=== PATIENT | female | born 1995 | race Caucasian/White ===

== ENCOUNTER 2017-10-28 03:24 | Emergency (ER) | payer MEDICAID ==
[2017-10-28] MEDS ORDERED: Pantoprazole 40 MG Vial IVPUSH ONE (04:14)
[2017-10-28] MEDS ORDERED: Ondansetron 4 MG/2 ML SDV IVPUSH ONE (04:14)
[2017-10-28] MEDS ORDERED: Ketorolac 30 MG/ML SDV IVPUSH ONE (04:14)
[2017-10-28 05:10] LABS: CHLORIDE,CL 109 mmol/L (98-110); SODIUM,NA 139 mmol/L (136-146)
--- NOTE | 2017-10-28 06:05 | EDM.PDOC ---
ED HPI GENERAL MEDICAL PROBLEM - General Chief Complaint: Headache Stated Complaint: HEAD HURT Time Seen by Provider: 10/28/17 05:48 - History of Present Illness INITIAL COMMENTS - FREE TEXT/NARRATIVE: HISTORY AND PHYSICAL: History of present illness: Patient's 22-year-old female presents with headache she states she did have a recent episode she was quite intoxicated and did have a fall she does not recall specifically having hit her head at that time she had some mild nausea she denies numbness weakness visual disturbance or other complaints at this time Review of systems: As per history of present illness and below otherwise all systems reviewed and negative. Past medical history: As per history of present illness and as reviewed below otherwise noncontributory. Surgical history: As per history of present illness and as reviewed below otherwise noncontributory. Social history: No reported history of drug or alcohol abuse. Family history: As per history of present illness and as reviewed below otherwise noncontributory. Physical exam: HEENT: Atraumatic, normocephalic, pupils reactive, negative for conjunctival pallor or scleral icterus, mucous membranes moist, throat clear, neck supple, nontender, trachea midline. Lungs: Clear to auscultation, breath sounds equal bilaterally, chest nontender. Heart: S1S2, regular, negative for clicks, rubs, or JVD. Abdomen: Soft, nondistended, nontender. Negative for masses or hepatosplenomegaly. Negative for costovertebral tenderness. Pelvis: Stable nontender. Genitourinary: Deferred. Rectal: Deferred. Extremities: Atraumatic, negative for cords or calf pain. Neurovascular unremarkable. Neuro: Awake, alert, oriented. Cranial nerves II through XII unremarkable. Cerebellum unremarkable. Motor and sensory unremarkable throughout. Exam nonfocal. Diagnostics: CT brain hCG Therapeutics: Deferred by patient Impression: #1 cephalgia Definitive disposition and diagnosis as appropriate pending reevaluation and review of above. occipital area Pain Score (Numeric/FACES): 6 - Related Data Allergies Allergy/AdvReac Type Severity Reaction Status Date / Time No Known Allergies Allergy Verified 10/28/17 03:27 Home Meds: Home Meds . 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 Musculoskeletal History: Reports: None Neurological History: Reports: None Psychiatric History: Reports: None Endocrine/Metabolic History: Reports: None Hematologic History: Reports: None Oncologic (Cancer) History: Reports: None Dermatologic History: Reports: None - Infectious Disease History Infectious Disease History: Reports: Chicken Pox - Past Surgical History HEENT Surgical History: Reports: Oral Surgery, Tonsillectomy Social & Family History - Family History Family Medical History: Noncontributory - Tobacco Use Smoking Status *Q: Never Smoker - Caffeine Use Caffeine Use: Reports: Tea - Recreational Drug Use Recreational Drug Use: No ED ROS GENERAL - Review of Systems Review Of Systems: ROS reveals no pertinent complaints other than HPI. ED EXAM, GENERAL - Physical Exam Exam: See Below (See dictation) Course - Vital Signs Last Recorded V/S: Last Vital Signs Temp 36.6 C 10/28/17 03:24 Pulse 68 10/28/17 03:24 Resp 18 10/28/17 03:24 BP 129/76 10/28/17 03:24 Pulse Ox 96 10/28/17 03:24 - Orders/Labs/Meds Orders: Active Orders 24 hr Category Date Time Status Chest 1V Frontal [CR] Stat Exams 10/28/17 04:14 Ordered Head wo Cont [CT] Stat Exams 10/28/17 05:52 Ordered HCG QUALITATIVE,URINE [URCHEM] Stat Lab 10/28/17 05:50 Received Labs: Laboratory Tests 10/28/17 10/28/17 Range/Units 04:42 04:42 WBC 8.34 (4.0-11.0) K/uL RBC 4.83 (4.30-5.90) M/uL Hgb 13.9 (12.0-16.0) g/dL Hct 41.2 (36.0-46.0) % MCV 85.3 (80.0-98.0) fL MCH 28.8 (27.0-32.0) pg MCHC 33.7 (31.0-37.0) g/dL RDW Std Deviation 41.0 (28.0-62.0) fl RDW Coeff of Laura 14 (11.0-15.0) % Plt Count 208 (150-400) K/uL MPV 10.50 (7.40-12.00) fL Neut % (Auto) 55.6 (48.0-80.0) % Lymph % (Auto) 32.0 (16.0-40.0) % [place] % (Auto) 9.2 (0.0-15.0) % Eos % (Auto) 2.8 (0.0-7.0) % Baso % (Auto) 0.4 (0.0-1.5) % Neut # (Auto) 4.6 (1.4-5.7) K/uL Lymph # (Auto) 2.7 H (0.6-2.4) K/uL [place] # (Auto) 0.8 (0.0-0.8) K/uL Eos # (Auto) 0.2 (0.0-0.7) K/uL Baso # (Auto) 0.0 (0.0-0.1) K/uL Sodium 139 (136-146) mmol/L Potassium 4.4 (3.5-5.1) mmol/L Chloride 109 (98-110) mmol/L Carbon Dioxide 22 (21-31) mmol/L BUN 21 (6.0-23.0) mg/dL Creatinine 0.9 (0.6-1.5) mg/dL Est Cr Clr Drug Dosing 100.73 mL/min Estimated GFR (MDRD) > 60.0 ml/min Glucose 108 (60-110) mg/dL Calcium 9.2 (8.8-10.8) mg/dL Total Bilirubin 0.4 (0.1-1.5) mg/dL AST 19 (5-40) IU/L ALT 20 (8-54) IU/L Alkaline Phosphatase 83 (40-150) Total Protein 6.4 (6.0-8.0) g/dL Albumin 4.3 (3.5-5.0) g/dL Globulin 2.1 (2.0-3.5) g/dL Albumin/Globulin Ratio 2.1 (1.3-2.8) Lipase 20 (7-80) U/L Meds: Medications Discontinued Medications Generic Name Dose Route Start Last Admin Trade Name Freq PRN Reason Stop Dose Admin Ketorolac Tromethamine 30 mg 10/28/17 04:14 Toradol IVPUSH 10/28/17 04:15 ONETIME ONE Ondansetron HCl 4 mg 10/28/17 04:14 Zofran IVPUSH 10/28/17 04:15 ONETIME ONE Pantoprazole Sodium 80 mg 10/28/17 04:14 Protonix Iv IVPUSH 10/28/17 04:15 .BOLUS ONE Departure - Departure Time of Disposition: 06:04 Disposition: Home, Self-Care 01 Condition: Good Clinical Impression: Cephalgia - Discharge Information Referrals: PCP,None [Primary Care Provider] - Additional Instructions: The following information is given to patients seen in the emergency department who are being discharged to home. This information is to outline your options for follow-up care. We provide all patients seen in our emergency department with a follow-up referral. The need for follow-up, as well as the timing and circumstances, are variable depending upon the specifics of your emergency department visit. If you don't have a primary care physician on staff, we will provide you with a referral. We always advise you to contact your personal physician following an emergency department visit to inform them of the circumstance of the visit and for follow-up with them and/or the need for any referrals to a consulting specialist. The emergency department will also refer you to a specialist when appropriate. This referral assures that you have the opportunity for followup care with a specialist. All of these measure are taken in an effort to provide you with optimal care, which includes your followup. Under all circumstances we always encourage you to contact your private physician who remains a resource for coordinating your care. When calling for followup care, please make the office aware that this follow-up is from your recent emergency room visit. If for any reason you are refused follow-up, please contact the [facility] emergency department at and asked to speak to the emergency department charge nurse. [facility] - Neurology Professional Building [address] [place] [address], [address] [place] [address] Motrin/Tylenol as directed push fluids: Schedule routine appointment with neurology as needed as discussed return as needed as discussed - My Orders Last 24 Hours: My Active Orders 10/28/17 04:14 Chest 1V Frontal [CR] Stat 10/28/17 05:50 HCG QUALITATIVE,URINE [URCHEM] Stat 10/28/17 05:52 Head wo Cont [CT] Stat - Assessment/Plan Last 24 Hours: My Active Orders 10/28/17 04:14 Chest 1V Frontal [CR] Stat 10/28/17 05:50 HCG QUALITATIVE,URINE [URCHEM] Stat 10/28/17 05:52 Head wo Cont [CT] Stat
[2017-10-28 07:48] VITALS: BP 106/52
--- NOTE | 2017-10-29 18:16 | CT ---
EXAM DATE: 10/28/17 PATIENT'S AGE: 22 Patient: OLIVER ANTONIO Facility: [place], [place] Site . Site : 1995 Study: CT Head WO CONT [id number] 6:24:38 AM Ordering Physician: Shruti Mijares Final Report: INDICATION: Headache for 3 days, with no known injury. Occipital region. TECHNIQUE: CT Head without i.v. contrast. CONTRAST: None COMPARISON: None FINDINGS: CSF spaces: The ventricles are normal for age. Brain: No evidence of mass, acute infarction or hemorrhage is seen. No mass- effect or midline shift is seen. The brain parenchyma is otherwise normal in appearance with preservation of the lara-white matter junction. Calvarium: The visualized paranasal sinuses are well aerated. The mastoid air cells are clear. The visualized orbits are grossly unremarkable. The calvarium is unremarkable in appearance with no fractures identified. IMPRESSION: 1. No evidence of acute infarction, intracranial hemorrhage, or mass-effect seen. Dictated by: Giovanny Mtz MD @ 10/28/2017 06:33:58 (Electronic Signature) Report Signed by Proxy. EBENEZER
== END 2017-10-28 07:37 | disposition home or self-care (01) ==
LOC: MW.ED 03:24
DX: R51 Headache (principal)
CPT/HCPCS: 36415; 70450; 70450-26; 80053; 81001; 81025; 83690; 85025; 99283; 99284-25

== ENCOUNTER 2019-01-14 16:00 | Emergency (ER) | payer SELFPAY ==
--- NOTE | 2019-01-14 16:06 | EDM.PDOC ---
ED HPI GENERAL MEDICAL PROBLEM - General Chief Complaint: Abdominal Pain Stated Complaint: PAIN ON THE LEFT SIDE Time Seen by Provider: 01/14/19 16:01 Source of Information: Reports: Patient History Limitations: Reports: No Limitations - History of Present Illness INITIAL COMMENTS - FREE TEXT/NARRATIVE: HISTORY AND PHYSICAL: History of present illness: Patient is a 23-year-old female who presents to the emergency room with complaints of left low pelvic pain intermittently for approximately 2-3 months. Describes as cramping sensation. Complains of chronic diarrhea, states she has history of IBS. Mild nausea associated with pelvic pain. Patient denies any fever, chills, headache, change in vision, syncope or near syncope. Denies any chest pain, back pain, shortness of breath or cough. Denies any vomiting, vaginal discharge, constipation or dysuria. Has not noted any blood in urine or stool. Patient has been eating and drinking appropriately. LMP: 2 weeks ago Review of systems: As per history of present illness and below otherwise all systems reviewed and negative. Past medical history: As per history of present illness and as reviewed below otherwise noncontributory. Surgical history: As per history of present illness and as reviewed below otherwise noncontributory. Social history: See social history for further information Family history: As per history of present illness and as reviewed below otherwise noncontributory. Physical exam: General: Well-developed and well-nourished 23-year-old female. Alert and oriented. Nontoxic appearing and in no acute distress. HEENT: Atraumatic, normocephalic, pupils equal and reactive bilaterally, negative for conjunctival pallor or scleral icterus, mucous membranes moist, TMs normal bilaterally, throat clear, neck supple, nontender, trachea midline. No drooling or trismus noted. No meningeal signs. No hot potato voice noted. Lungs: Clear to auscultation, breath sounds equal bilaterally, chest nontender. Heart: S1S2, regular rate and rhythm without overt murmur Abdomen: Soft, nondistended, left low pelvic pain Negative for masses or hepatosplenomegaly. Negative for costovertebral tenderness. Skin: Intact, warm, dry. No lesions or rashes noted. Extremities: Atraumatic, moves all extremities per self without difficulty or deficits, negative for cords or calf pain. Neurovascular unremarkable. Neuro: Awake, alert, oriented. Cranial nerves II through XII unremarkable. Cerebellum unremarkable. Motor and sensory unremarkable throughout. Exam nonfocal. Notes: Patient reports that she recently had a routine well woman exam and had negative STD screening at that time. Declines pelvic exam today. Lab work is unremarkable. Ultrasound is unremarkable. Encouraged her to follow up with her primary care provider. Supportive care measures were reviewed and discussed. Voices understanding and is agreeable to plan of care. Denies any further questions or concerns at this time. Diagnostics: CBC, CMP, UA, urine , non-OB ultrasound Therapeutics: IV fluid, Zofran, Toradol, Bentyl Prescription: Bentyl Diclofenac Impression: Abdominal Pain Chronic Diarrhea History of IBS Plan: 1. If sure you are drinking plenty of fluids to prevent dehydration. 2. Take the medications as prescribed. 3. Follow-up with your primary caregiver as we discussed. Return to the ED as needed and as discussed. Definitive disposition and diagnosis as appropriate pending reevaluation and review of above. Left Lower Pelvic Pain Score (Numeric/FACES): 8 - Related Data Allergies Allergy/AdvReac Type Severity Reaction Status Date / Time No Known Allergies Allergy Verified 01/14/19 16:14 Home Meds: Home Meds . 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 Musculoskeletal History: Reports: None Neurological History: Reports: None Psychiatric History: Reports: None Endocrine/Metabolic History: Reports: None Hematologic History: Reports: None Oncologic (Cancer) History: Reports: None Dermatologic History: Reports: None - Infectious Disease History Infectious Disease History: Reports: Chicken Pox - Past Surgical History HEENT Surgical History: Reports: Oral Surgery, Tonsillectomy Social & Family History - Family History Family Medical History: Noncontributory - Caffeine Use Caffeine Use: Reports: Tea ED ROS GENERAL - Review of Systems Review Of Systems: ROS reveals no pertinent complaints other than HPI. ED EXAM, GI/ABD - Physical Exam Exam: See Below (See dictation) Course - Vital Signs Last Recorded V/S: Last Vital Signs Temp 98.3 F 01/14/19 16:11 Pulse 88 01/14/19 16:11 Resp 18 01/14/19 16:11 BP 127/93 H 01/14/19 16:11 Pulse Ox 98 01/14/19 16:11 - Orders/Labs/Meds Orders: Active Orders 24 hr Category Date Time Status Transvaginal Non OB [US] Stat Exams 01/14/19 16:15 Taken Labs: Laboratory Tests 01/14/19 01/14/19 01/14/19 Range/Units 16:15 16:15 16:34 WBC 9.66 (4.0-11.0) K/uL RBC 5.18 (4.30-5.90) M/uL Hgb 14.3 (12.0-16.0) g/dL Hct 42.6 (36.0-46.0) % MCV 82.2 (80.0-98.0) fL MCH 27.6 (27.0-32.0) pg MCHC 33.6 (31.0-37.0) g/dL RDW Std Deviation 37.9 (28.0-62.0) fl RDW Coeff of Laura 13 (11.0-15.0) % Plt Count 282 (150-400) K/uL MPV 10.60 (7.40-12.00) fL Neut % (Auto) 70.0 (48.0-80.0) % Lymph % (Auto) 23.6 (16.0-40.0) % [place] % (Auto) 5.2 (0.0-15.0) % Eos % (Auto) 0.6 (0.0-7.0) % Baso % (Auto) 0.6 (0.0-1.5) % Neut # (Auto) 6.8 H (1.4-5.7) K/uL Lymph # (Auto) 2.3 (0.6-2.4) K/uL [place] # (Auto) 0.5 (0.0-0.8) K/uL Eos # (Auto) 0.1 (0.0-0.7) K/uL Baso # (Auto) 0.1 (0.0-0.1) K/uL Nucleated RBC % 0.0 /100WBC Nucleated RBCs # 0 K/uL Sodium (136-145) mmol/L Potassium (3.5-5.1) mmol/L Chloride (98-107) mmol/L Carbon Dioxide (21.0-32.0) mmol/L BUN (7.0-18.0) mg/dL Creatinine (0.6-1.0) mg/dL Est Cr Clr Drug Dosing mL/min Estimated GFR (MDRD) ml/min Glucose (74-106) mg/dL Calcium (8.5-10.1) mg/dL Total Bilirubin (0.2-1.0) mg/dL AST (15-37) IU/L ALT (14-63) IU/L Alkaline Phosphatase (46-116) U/L Total Protein (6.4-8.2) g/dL Albumin (3.4-5.0) g/dL Globulin (2.6-4.0) g/dL Albumin/Globulin Ratio (0.9-1.6) Urine Color YELLOW Urine Appearance CLEAR Urine pH 6.0 (5.0-8.0) Ur Specific Comfort <= 1.005 (1.001-1.035) Urine Protein NEGATIVE (NEGATIVE) mg/dL Urine Glucose (UA) NEGATIVE (NEGATIVE) mg/dL Urine Ketones NEGATIVE (NEGATIVE) mg/dL Urine Occult Blood NEGATIVE (NEGATIVE) Urine Nitrite NEGATIVE (NEGATIVE) Urine Bilirubin NEGATIVE (NEGATIVE) Urine Urobilinogen 0.2 (<2.0) EU/dL Ur Leukocyte Esterase NEGATIVE (NEGATIVE) Urine HCG, Qual NEGATIVE (NEGATIVE) 01/14/19 Range/Units 16:34 WBC (4.0-11.0) K/uL RBC (4.30-5.90) M/uL Hgb (12.0-16.0) g/dL Hct (36.0-46.0) % MCV (80.0-98.0) fL MCH (27.0-32.0) pg MCHC (31.0-37.0) g/dL RDW Std Deviation (28.0-62.0) fl RDW Coeff of Laura (11.0-15.0) % Plt Count (150-400) K/uL MPV (7.40-12.00) fL Neut % (Auto) (48.0-80.0) % Lymph % (Auto) (16.0-40.0) % [place] % (Auto) (0.0-15.0) % Eos % (Auto) (0.0-7.0) % Baso % (Auto) (0.0-1.5) % Neut # (Auto) (1.4-5.7) K/uL Lymph # (Auto) (0.6-2.4) K/uL [place] # (Auto) (0.0-0.8) K/uL Eos # (Auto) (0.0-0.7) K/uL Baso # (Auto) (0.0-0.1) K/uL Nucleated RBC % /100WBC Nucleated RBCs # K/uL Sodium 137 (136-145) mmol/L Potassium 4.0 (3.5-5.1) mmol/L Chloride 101 (98-107) mmol/L Carbon Dioxide 26.0 (21.0-32.0) mmol/L BUN 7 (7.0-18.0) mg/dL Creatinine 0.8 (0.6-1.0) mg/dL Est Cr Clr Drug Dosing 112.34 mL/min Estimated GFR (MDRD) > 60.0 ml/min Glucose 118 H (74-106) mg/dL Calcium 9.7 (8.5-10.1) mg/dL Total Bilirubin 0.7 (0.2-1.0) mg/dL AST 11 L (15-37) IU/L ALT 19 (14-63) IU/L Alkaline Phosphatase 68 (46-116) U/L Total Protein 7.7 (6.4-8.2) g/dL Albumin 4.5 (3.4-5.0) g/dL Globulin 3.2 (2.6-4.0) g/dL Albumin/Globulin Ratio 1.4 (0.9-1.6) Urine Color Urine Appearance Urine pH (5.0-8.0) Ur Specific Comfort (1.001-1.035) Urine Protein (NEGATIVE) mg/dL Urine Glucose (UA) (NEGATIVE) mg/dL Urine Ketones (NEGATIVE) mg/dL Urine Occult Blood (NEGATIVE) Urine Nitrite (NEGATIVE) Urine Bilirubin (NEGATIVE) Urine Urobilinogen (<2.0) EU/dL Ur Leukocyte Esterase (NEGATIVE) Urine HCG, Qual (NEGATIVE) Meds: Medications Discontinued Medications Generic Name Dose Route Start Last Admin Trade Name Freq PRN Reason Stop Dose Admin Dicyclomine HCl 10 mg 01/14/19 16:49 01/14/19 17:25 Bentyl PO 01/14/19 16:50 10 mg ONETIME ONE Administration Sodium Chloride 1,000 mls @ 999 mls/hr 01/14/19 16:13 01/14/19 16:32 Normal Saline IV 01/14/19 17:13 999 mls/hr STAT ONE Administration Ketorolac Tromethamine 30 mg 01/14/19 16:13 01/14/19 16:32 Toradol IVPUSH 01/14/19 16:14 30 mg ONETIME ONE Administration Ondansetron HCl 4 mg 01/14/19 16:13 01/14/19 16:32 Zofran IVPUSH 01/14/19 16:14 4 mg ONETIME ONE Administration Departure - Departure Time of Disposition: 18:15 Disposition: Home, Self-Care 01 Clinical Impression: Abdominal pain Qualifiers: Abdominal location: left lower quadrant Qualified Code(s): R10.32 - Left lower quadrant pain - Discharge Information Instructions: Abdominal Pain, Adult, [id number] Referrals: PCP,Unknown [Primary Care Provider] - Forms: ED Department Discharge Additional Instructions: The following information is given to patients seen in the emergency department who are being discharged to home. This information is to outline your options for follow-up care. We provide all patients seen in our emergency department with a follow-up referral. The need for follow-up, as well as the timing and circumstances, are variable depending upon the specifics of your emergency department visit. If you don't have a primary care physician on staff, we will provide you with a referral. We always advise you to contact your personal physician following an emergency department visit to inform them of the circumstance of the visit and for follow-up with them and/or the need for any referrals to a consulting specialist. The emergency department will also refer you to a specialist when appropriate. This referral assures that you have the opportunity for follow-up care with a specialist. All of these measure are taken in an effort to provide you with optimal care, which includes your follow-up. Under all circumstances we always encourage you to contact your private physician who remains a resource for coordinating your care. When calling for follow-up care, please make the office aware that this follow-up is from your recent emergency room visit. If for any reason you are refused follow-up, please contact the [facility] Emergency Department at and asked to speak to the emergency department charge nurse. [facility] [address] [place] [address] [facility] [address] [place] [id number] 1. Make sure you are drinking plenty of fluids to prevent dehydration. 2. Take the medications as prescribed. 3. Follow-up with your primary caregiver as we discussed. Return to the ED as needed and as discussed. - My Orders Last 24 Hours: My Active Orders 01/14/19 16:15 Transvaginal Non OB [US] Stat - Assessment/Plan Last 24 Hours: My Active Orders 01/14/19 16:15 Transvaginal Non OB [US] Stat
[2019-01-14] MEDS ORDERED: Sodium Chloride 0.9% 1,000 ML IV ONE (16:13)
[2019-01-14] MEDS ORDERED: Ketorolac 30 MG/ML SDV IVPUSH ONE (16:13)
[2019-01-14] MEDS ORDERED: Ondansetron 4 MG/2 ML SDV IVPUSH ONE (16:13)
[2019-01-14] MEDS ORDERED: Dicyclomine 10 MG Cap PO ONE (16:49)
[2019-01-14 17:01] LABS: CHLORIDE,CL 101 mmol/L (98-107); SODIUM,NA 137 mmol/L (136-145)
--- NOTE | 2019-01-14 18:13 | US ---
INDICATION: Left-sided pelvic pain for 6 months TECHNIQUE: Ultrasound pelvis transabdominal and transvaginal for better assessment or to better visualize. Real time sonographic images with Spectral and color Doppler imaging of the ovaries were obtained. COMPARISON: FINDINGS: Uterus: 7.8 x 4.6 x 3.0 cm. Normal echotexture of the myometrium. No masses. Endometrium: Transvaginal imaging was performed to better evaluate the endometrium. 5.6 mm in thickness. No sign of endometrial mass or fluid. Right ovary: 1.2 x 1.8 x 1.2 cm. No ovarian or adnexal masses. Normal arterial and venous blood flow. Left ovary: 3.2 x 2.6 x 3.5 cm. No ovarian or adnexal masses. Normal arterial and venous blood flow. Cul-de-sac: No significant free fluid. IMPRESSION: Unremarkable pelvic ultrasound. Dictated by Gaurav Durham MD @ Jan 14 2019 6:08PM Signed by Dr. Gaurav Durham @ Jan 14 2019 6:11PM
[2019-01-14 18:33] VITALS: BP 93/54
== END 2019-01-14 18:32 | disposition home or self-care (01) ==
LOC: MW.ED 16:00
DX: K52.9 Noninfective gastroenteritis and colitis, unspecified (principal)
CPT/HCPCS: 36415; 76830; 80053; 81003; 81025; 85025; 96361; 96374; 96375; 99284; A9270; J1885; J2405; J7040

== ENCOUNTER 2021-03-07 08:00 | Inpatient (IN) | payer BC ==
[2021-03-14] MEDS ORDERED: Sodium Chloride 0.9% 10 ML Syringe FLUSH PRN (07:43)
[2021-03-14] MEDS ORDERED: Sodium Chloride 0.9% 10 ML SDV IV PRN (07:43)
[2021-03-14] MEDS ORDERED: Citric Acid/Sodium Citrate Solution 30 ML Cup PO ONE (07:43)
[2021-03-14] MEDS ORDERED: Sodium Chloride 0.9% 2.5 ML Syringe FLUSH PRN (07:43)
[2021-03-14] MEDS ORDERED: Lactated Ringers 1,000 ML IV SCH ×2 (07:45→10:30)
[2021-03-14] MEDS ORDERED: Oxytocin/0.9 % Sodium Chloride 30 UNIT/500 ML BAG IV SCH (07:45)
[2021-03-14] MEDS ORDERED: Ketorolac 30 MG/ML SDV ONE (08:07)
[2021-03-14] MEDS ORDERED: Oxytocin 10 Units/1 ML SDV ONE (08:07)
[2021-03-14] MEDS ORDERED: Sodium Chloride 0.9% 20 ML ONE (08:07)
[2021-03-14] MEDS ORDERED: ceFAZolin 1 GM Vial ONE (08:07)
[2021-03-14] MEDS ORDERED: Ondansetron 4 MG/2 ML SDV ONE (08:07)
[2021-03-14] MEDS ORDERED: Morphine PF 10 MG/10 ML SDV ONE (08:08)
[2021-03-14] MEDS ORDERED: fentaNYL 100 MCG/2 ML SDV ONE (08:08)
--- NOTE | 2021-03-14 08:25 | PCM.PREANE ---
Preanesthetic Assessment - Anesthesia/Transfusion/Family Hx Anesthesia History: Prior Anesthesia Without Reaction Family History of Anesthesia Reaction: No Transfusion History: No Prior Transfusion(s) - Review of Systems General: No Symptoms Pulmonary: No Symptoms Cardiovascular: No Symptoms Gastrointestinal: No Symptoms Neurological: No Symptoms Other: Reports: None - Physical Assessment NPO Status Date: 03/14/21 NPO Status Time: 00:00 Height: 5 ft 9 in Weight: 235 lb ASA Class: 2 Mental Status: Alert & Oriented x3 Airway Class: Mallampati = 3 Dentition: Reports: Normal Dentition ROM/Head Extension: Full Lungs: Clear to Auscultation, Normal Respiratory Effort Cardiovascular: Regular Rate, Regular Rhythm - Allergies Allergies/Adverse Reactions: Allergies Allergy/AdvReac Type Severity Reaction Status Date / Time No Known Allergies Allergy Verified 03/08/21 09:07 - Blood Blood Available: Yes Product(s) Available: PRBC - Anesthesia Plan Pre-Op Medication Ordered: None - Acknowledgements Anesthesia Type Planned: Spinal Pt an Appropriate Candidate for the Planned Anesthesia: Yes Alternatives and Risks of Anesthesia Discussed w Pt/Guardian: Yes Pt/Guardian Understands and Agrees with Anesthesia Plan: Yes PreAnesthesia Questionnaire - Past Health History Medical/Surgical History: Denies Medical/Surgical History HEENT History: Reports: None Other HEENT History: wears glasses Cardiovascular History: Reports: None Respiratory History: Reports: None Gastrointestinal History: Reports: None Genitourinary History: Reports: None LANDSCAPE ARCHITECT History: Reports: None Musculoskeletal History: Reports: None Neurological History: Reports: None Psychiatric History: Reports: None Endocrine/Metabolic History: Reports: None Hematologic History: Reports: None Immunologic History: Reports: None Oncologic (Cancer) History: Reports: None Dermatologic History: Reports: None - Infectious Disease History Infectious Disease History: Reports: Chicken Pox - Past Surgical History Head Surgeries/Procedures: Reports: None HEENT Surgical History: Reports: Oral Surgery, Tonsillectomy Cardiovascular Surgical History: Reports: None Respiratory Surgical History: Reports: None GI Surgical History: Reports: None Female Surgical History: Reports: None Endocrine Surgical History: Reports: None Neurological Surgical History: Reports: None Musculoskeletal Surgical History: Reports: None Oncologic Surgical History: Reports: None Dermatological Surgical History: Reports: None - SUBSTANCE USE Tobacco Use Status *Q: Never Tobacco User - HOME MEDS Home Medications: Home Meds Vit with Ca/FA/Iron [ Plus Iron] 1 tab-cap PO DAILY 03/07/21 [History] Calcium Carbonate [Tums] 1 tab.chew CHEW ASDIRECTED PRN 03/08/21 [History] - CURRENT (IN HOUSE) MEDS Current Meds: Current Medications Oxytocin/Sodium Chloride (Oxytocin 30 Unit/500 Ml-Ns) 30 unit in 500 mls @ 250 mls/hr IV TITRATE JAMI Lactated Ringer's (Ringers, Lactated) 1,000 mls @ 500 mls/hr IV BOLUS JAMI Sodium Chloride (Sodium Chloride 0.9% 10 Ml Syringe) 10 ml FLUSH ASDIRECTED PRN PRN Reason: Keep Vein Open Sodium Chloride (Sodium Chloride 0.9% 2.5 Ml Syringe) 2.5 ml FLUSH ASDIRECTED PRN PRN Reason: Keep Vein Open Sodium Chloride (Sodium Chloride 0.9% 10 Ml Sdv) 10 ml IV ASDIRECTED PRN PRN Reason: IV Use Discontinued Medications Cefazolin Sodium (Cefazolin 1 Gm Vial) Confirm Administered Dose 2 gm .ROUTE .STK-MED ONE Stop: 03/14/21 08:08 Citric Acid/Sodium Citrate (Citric Acid/Sodium Citrate Solution 30 Ml Cup) 30 ml PO ONETIME ONE Stop: 03/14/21 07:44 Fentanyl (Fentanyl 100 Mcg/2 Ml Sdv) Confirm Administered Dose 100 mcg .ROUTE .STK-MED ONE Stop: 03/14/21 08:09 Sodium Chloride (Normal Saline) Confirm Administered Dose 20 mls @ as directed .ROUTE .STK-MED ONE Stop: 03/14/21 08:08 Ketorolac Tromethamine (Ketorolac 30 Mg/Ml Sdv) Confirm Administered Dose 30 mg .ROUTE .STK-MED ONE Stop: 03/14/21 08:08 Morphine Sulfate (Morphine Pf 10 Mg/10 Ml Sdv) Confirm Administered Dose 10 mg .ROUTE .STK-MED ONE Stop: 03/14/21 08:09 Ondansetron HCl (Ondansetron 4 Mg/2 Ml Sdv) Confirm Administered Dose 4 mg .ROUTE .STK-MED ONE Stop: 03/14/21 08:08 Oxytocin (Oxytocin 10 Units/1 Ml Sdv) Confirm Administered Dose 30 unit .ROUTE .STK-MED ONE Stop: 03/14/21 08:08
[2021-03-14] MEDS ORDERED: Bupivacaine 0.5% 30 ML SDV ONE (09:31)
[2021-03-14] MEDS ORDERED: Bupivacaine 0.5% 10 ML SDV ONE (09:31)
[2021-03-14] MEDS ORDERED: EPINEPHrine 1 MG/ML SDV ONE (09:31)
[2021-03-14] MEDS ORDERED: Ondansetron 4 MG/2 ML SDV IVPUSH PRN (10:21)
[2021-03-14] MEDS ORDERED: Lanolin 100% Cream 7 GM Tube TOP PRN (10:21)
[2021-03-14] MEDS ORDERED: Bisacodyl 10 MG Supp RECTAL PRN (10:21)
[2021-03-14] MEDS ORDERED: diphenhydrAMINE 50 MG/ML SDV IVPUSH PRN (10:21)
--- NOTE | 2021-03-14 10:28 | PCM.OPNOTE ---
- General Post-Op/Procedure Note Date of Surgery/Procedure: 03/14/21 Operative Procedure(s): Primary low-transverse section Findings: Live female , Apgars 8/8, weight 2430g, meredith breech presentation, Crissy [place] Placenta intact and with 3-vessel cord Normal-appearing uterus, fallopian tubes, ovaries Pre Op Diagnosis: 26yo @ 38w0d. Meredith breech presentation. growth restriction Post-Op Diagnosis: Same Anesthesia Technique: Local (TAP block by Anesthesia), Spinal Primary Surgeon: Shani Cisneros Anesthesia Provider: Lopez Marley Pathology: Placenta, cord blood, cord gases Fluid Replacement, Intraop: 1,500 Output, Urine Amount: 125 EBL in mLs: 600 Complications: None Condition: Good Free Text/Narrative:: 2g Ancef IV given prior to procedure
[2021-03-14] MEDS ORDERED: Oxytocin/Lactated Ringers 30 UNIT/500 ML BAG IV SCH (10:30)
--- NOTE | 2021-03-14 10:44 | PCM48HPAN ---
Post Anesthesia Note - EVALUATION WITHIN 48HRS OF ANESTHETIC Vital Signs in Normal Range: Yes Patient Participated in Evaluation: Yes Respiratory Function Stable: Yes Airway Patent: Yes Cardiovascular Function Stable: Yes Hydration Status Stable: Yes Pain Control Satisfactory: Yes Nausea and Vomiting Control Satisfactory: Yes Mental Status Recovered: Yes
--- NOTE | 2021-03-14 10:44 | PCM.POSTAN ---
POST ANESTHESIA ASSESSMENT - MENTAL STATUS Mental Status: Alert, Oriented - RESPIRATORY Respiratory Status: Respiratory Rate WNL, Airway Patent, O2 Saturation Stable - CARDIOVASCULAR CV Status: Pulse Rate WNL, Blood Pressure Stable - GASTROINTESTINAL GI Status: No Symptoms - POST OP HYDRATION Hydration Status: Adequate & Stable
--- NOTE | 2021-03-14 10:50 | PCM.SN.2 ---
- Free Text/Narrative Note: Under sterile conditions, having obtained informed consent and following a primary C/S an US guided Bilateral TAPS block was performed for post op analgesia. Patient was fully monitored and received 20cc 0.5% Bupiv with epi on each side. No complications Patient tolerated the procedure well and was taken to PACU for recovery. Lopez Marley MD Anesthesia start: 1007 Anesthesia Stop: 1015 03/14/2021
--- NOTE | 2021-03-14 11:49 | OR ---
SURGEON: Shani Cisneros MD DATE OF PROCEDURE: 03/14/2021 PREOPERATIVE DIAGNOSES: 1. 26-year-old G1, P0, at 38 weeks' and 0 day gestation. 2. Meredith breech presentation. 3. growth restriction. POSTOPERATIVE DIAGNOSES: 1. 26-year-old G1, P0, at 38 weeks' and 0 day gestation. 2. Meredith breech presentation. 3. growth restriction. PROCEDURE: Primary low transverse section via Pfannenstiel. PRIMARY SURGEON: Shani Cisneros MD ANESTHESIA: Spinal and transversus abdominis plane block by Anesthesia. IV FLUIDS: 1500 mL LR. ESTIMATED BLOOD LOSS: 600 mL. URINE OUTPUT: 125 mL clear yellow urine at the end of procedure. ANTIBIOTIC PROPHYLAXIS: 2 g Ancef IV. FINDINGS: Live female infant in meredith breech presentation. score 8 and 8 at one and five minutes respectively. Weight 2430 g. Placenta intact and with 3-vessel cord. Normal-appearing uterus, fallopian tubes, and ovaries. PATHOLOGY: Placenta and cord blood. INDICATIONS: This is a 26-year-old G1, P0, who presented at 38 weeks' and 0 day gestation for scheduled primary delivery. The patient's infant had persistent breech presentation. The patient declined external cephalic version. growth restriction was suspected based on ultrasound with an estimated weight to be 8th percentile. After discussion with Maternal Medicine, the plan was made to deliver the patient at 38 weeks' and 0 day gestation. The risks, benefits, and alternatives of procedure were reviewed with the patient prior to surgery. DESCRIPTION OF PROCEDURE: The patient was taken to the operating room, where spinal anesthesia was obtained without difficulty. She was placed in the dorsal supine position with leftward tilt. She was prepared and draped in the normal sterile fashion. A Pfannenstiel skin incision was made with a scalpel and carried through to the underlying layer of fascia with the Bovie. Fascia was incised in the midline and the incision extended laterally with curved Ellis scissors. The superior aspect of the fascial incision was grasped with Lyndsey clamps, elevated, and underlying rectus muscles dissected off bluntly. In a similar fashion, the inferior aspect of the fascial incision was grasped with Lyndsey clamps, elevated, and the underlying rectus muscles dissected off bluntly. Peritoneum was identified in the midline and entered bluntly with a digit. Peritoneal incision was extended using manual traction. A large Eduardo retractor was placed. A low uterine hysterotomy was created. Artificial rupture of membranes occurred with clear fluid noted. The hysterotomy was extended using manual traction. The 's buttocks were noted at the hysterotomy and was brought through. The buttocks were grasped with a moist blue towel and the infant was delivered to the level of the scapula. At this time, the legs easily delivered. The 's left arm was swept across the chest and delivered through hysterotomy. was rotated 180 degrees and the right arm was swept across the chest and delivered. The infant's head was flexed. Using the Tpoivqfp-[id number]-[id number] manuever, the 's head was delivered through the hysterotomy. After approximately 15 seconds, the cord was clamped and cut and the infant was handed off to the awaiting Rooming House Keeper and nurse. Cord blood and cord gases were obtained. Placenta then delivered intact and with 3-vessel cord with uterine massage and gentle traction on the cord. The uterus was cleared of all clots and debris. Hysterotomy was repaired with a running locked stitch of 0 Vicryl suture. A second stitch of the same suture was used to obtain hemostasis. The Bovie was used to obtain hemostasis of bleeding serosa. The hysterotomy was inspected and noted to be hemostatic. The Eduardo retractor was removed. The peritoneum and muscle were closed with a running stitch of 3-0 Vicryl suture. The muscles were inspected and the Bovie used to obtain hemostasis. The fascia was closed with running stitch of 0 Vicryl suture. The subcutaneous tissue was irrigated with sterile saline. The subcutaneous tissue was closed with a running stitch of 3-0 Vicryl suture. The skin was closed with 4-0 Monocryl in subcuticular fashion. The incision was covered with Steri-Strips and a pressure dressing. After completion of the procedure, the transversus abdominis plane block was performed by Anesthesia. All sponge, lap, and needle counts were correct x2. [id number] / RYNE /[id number] EBENEZER
[2021-03-14] MEDS: Ketorolac 30 MG/ML SDV IVPUSH SCH ×3 (16:43→22:30)
[2021-03-14] MEDS: Docusate Sodium 100 MG Cap PO SCH (21:36)
[2021-03-15] MEDS: Ketorolac 30 MG/ML SDV IVPUSH SCH ×2 (04:46→12:15)
--- NOTE | 2021-03-15 06:14 | PCM.PNPP ---
- General Info Date of Service: 03/15/21 Subjective Update: Patient without complaints this morning, states she is doing really well. Has ambulated in room. Minimal pain. Functional Status: Reports: Pain Controlled, Tolerating Diet, Ambulating - Review of Systems General: Reports: No Symptoms HEENT: Reports: No Symptoms Pulmonary: Reports: No Symptoms Cardiovascular: Reports: No Symptoms Gastrointestinal: Reports: No Symptoms Genitourinary: Reports: No Symptoms Musculoskeletal: Reports: No Symptoms Skin: Reports: No Symptoms Neurological: Reports: No Symptoms Psychiatric: Reports: No Symptoms - Patient Data Vital Signs - Most Recent: Last Vital Signs Temp 36.6 C 03/15/21 04:30 Pulse 78 03/15/21 06:00 Resp 16 03/15/21 06:00 BP 95/71 03/15/21 04:30 Pulse Ox 98 03/15/21 06:00 Weight - Most Recent: 106.594 kg I&O - Last 24 Hours: Intake & Output 03/14/21 03/14/21 03/15/21 14:59 22:59 06:59 Intake Total 1500 Output Total 450 450 705 Balance 1050 -450 -705 Lab Results - Last 24 Hours: Laboratory Results - last 24 hr 03/14/21 03/14/21 03/14/21 Range/Units 08:05 08:05 09:37 WBC 13.63 H (4.0-11.0) K/uL RBC 4.81 (4.30-5.90) M/uL Hgb 13.3 (12.0-16.0) g/dL Hct 39.3 (36.0-46.0) % MCV 81.7 (80.0-98.0) fL MCH 27.7 (27.0-32.0) pg MCHC 33.8 (31.0-37.0) g/dL RDW Std Deviation 40.1 (28.0-62.0) fl RDW Coeff of Laura 13 (11.0-15.0) % Plt Count 273 (150-400) K/uL MPV 11.40 (7.40-12.00) fL Nucleated RBC % 0.0 /100WBC Nucleated RBCs # 0 K/uL Cord ABG pH TNP Cord ABG Base Excess TNP Cord VBG pH 7.302 (7.25-7.45) Cord VBG Base Excess -3 (-10--2) Blood Type O POSITIVE Antibody Screen NEGATIVE Med Orders - Current: Current Medications Bisacodyl (Bisacodyl 10 Mg Supp) 10 mg RECTAL ONETIME PRN PRN Reason: Constipation Diphenhydramine HCl (Diphenhydramine 50 Mg/Ml Sdv) 25 mg IVPUSH Q6H PRN PRN Reason: Itching or Nausea Docusate Sodium (Docusate Sodium 100 Mg Cap) 100 mg PO BID [facility] Last Admin: 03/14/21 21:36 Dose: 100 mg Documented by: Emollient Ointment (Lanolin 100% Cream 7 Gm Tube) 0 gm TOP ASDIRECTED PRN PRN Reason: Sore Nipples Oxytocin/Sodium Chloride (Oxytocin 30 Unit/500 Ml-Ns) 30 unit in 500 mls @ 250 mls/hr IV TITRATE [facility] Lactated Ringer's (Ringers, Lactated) 1,000 mls @ 500 mls/hr IV BOLUS JAMI Lactated Ringer's (Ringers, Lactated) 1,000 mls @ 125 mls/hr IV ASDIRECTED [facility] Last Admin: 03/14/21 12:22 Dose: 125 mls/hr Documented by: Oxytocin/Lactated Ringer's (Pitocin In Lr 30 Units/500 Ml) 30 unit in 500 mls @ 999 mls/hr IV TITRATE [facility]; Protocol Ibuprofen (Ibuprofen 800 Mg Tab) 800 mg PO Q8H PRN PRN Reason: mild pain or fever Ketorolac Tromethamine (Ketorolac 30 Mg/Ml Sdv) 30 mg IVPUSH Q6H [facility] Stop: 03/15/21 10:31 Last Admin: 03/15/21 04:46 Dose: 30 mg Documented by: Ondansetron HCl (Ondansetron 4 Mg/2 Ml Sdv) 4 mg IVPUSH Q4H PRN PRN Reason: Nausea/Vomiting Oxycodone/Acetaminophen (Acetaminophen/Oxycodone 325-5 Mg Tab) 1 tab PO Q4H PRN PRN Reason: Pain (severe 7-10) Oxycodone/Acetaminophen (Acetaminophen/Oxycodone 325-5 Mg Tab) 2 tab PO Q4H PRN PRN Reason: Pain (severe 7-10) Sodium Chloride (Sodium Chloride 0.9% 10 Ml Syringe) 10 ml FLUSH ASDIRECTED PRN PRN Reason: Keep Vein Open Sodium Chloride (Sodium Chloride 0.9% 2.5 Ml Syringe) 2.5 ml FLUSH ASDIRECTED PRN PRN Reason: Keep Vein Open Sodium Chloride (Sodium Chloride 0.9% 10 Ml Sdv) 10 ml IV ASDIRECTED PRN PRN Reason: IV Use Discontinued Medications Bupivacaine HCl (Bupivacaine 0.5% 10 Ml Sdv) Confirm Administered Dose 10 ml .ROUTE .STK-MED ONE Stop: 03/14/21 09:32 Bupivacaine HCl (Bupivacaine 0.5% 30 Ml Sdv) Confirm Administered Dose 30 ml .ROUTE .STK-MED ONE Stop: 03/14/21 09:32 Cefazolin Sodium (Cefazolin 1 Gm Vial) Confirm Administered Dose 2 gm .ROUTE .STK-MED ONE Stop: 03/14/21 08:08 Citric Acid/Sodium Citrate (Citric Acid/Sodium Citrate Solution 30 Ml Cup) 30 ml PO ONETIME ONE Stop: 03/14/21 07:44 Epinephrine HCl (Epinephrine 1 Mg/Ml Sdv) Confirm Administered Dose 1 mg .ROUTE .STK-MED ONE Stop: 03/14/21 09:32 Fentanyl (Fentanyl 100 Mcg/2 Ml Sdv) Confirm Administered Dose 100 mcg .ROUTE .STK-MED ONE Stop: 03/14/21 08:09 Sodium Chloride (Normal Saline) Confirm Administered Dose 20 mls @ as directed .ROUTE .STK-MED ONE Stop: 03/14/21 08:08 Ketorolac Tromethamine (Ketorolac 30 Mg/Ml Sdv) Confirm Administered Dose 30 mg .ROUTE .STK-MED ONE Stop: 03/14/21 08:08 Morphine Sulfate (Morphine Pf 10 Mg/10 Ml Sdv) Confirm Administered Dose 10 mg .ROUTE .STK-MED ONE Stop: 03/14/21 08:09 Ondansetron HCl (Ondansetron 4 Mg/2 Ml Sdv) Confirm Administered Dose 4 mg .ROUTE .STK-MED ONE Stop: 03/14/21 08:08 Oxytocin (Oxytocin 10 Units/1 Ml Sdv) Confirm Administered Dose 30 unit .ROUTE .STK-MED ONE Stop: 03/14/21 08:08 - Infant Interaction Infant Disposition, : in Room with Family Interaction: Holding Feeding: Bottle Fed Infant Support Person: Significant Other - Recovery Exam Fundal Tone: Firm Fundal Level: 1 Fingerbreadths Below Umbilicus Fundal Placement: Midline Lochia Amount: Scant, Small Lochia Color: Rubra/Red Urinary Elimination: Not Voiding (catheter removed 1 hour ago, has not yet attempted voiding) - Exam General: Alert, Oriented Neck: Supple Lungs: Normal Respiratory Effort GI/Abdominal Exam: Soft, Non-Tender, No Distention Extremities: Non-Tender, No Pedal Edema Skin: Warm, Dry, Intact Wound/Incisions: Dressing Dry and Intact Neurological: No New Focal Deficit Psy/Mental Status: Alert, Normal Affect, Normal Mood - Problem List & Annotations (1) S/P primary low transverse SNOMED Code(s): 651540374, [id number], 951748251, 812902062, [id number] Code(s): Z98.891 - HISTORY OF UTERINE SCAR FROM PREVIOUS SURGERY Status: Acute Current Visit: Yes - Problem List Review Problem List Initiated/Reviewed/Updated: Yes - My Orders Last 24 Hours: My Active Orders 03/14/21 07:43 Patient Status [ADT] Routine Procedure Site Prep Instruct [RC] ASDIRECTED Up ad Rosie [RC] ASDIRECTED Verify Patient Consent Obtain [RC] ASDIRECTED Vital Signs [RC] PER UNIT ROUTINE Sodium Chloride 0.9% [Normal Saline] 10 ml IV ASDIRECTED PRN Sodium Chloride 0.9% [Saline Flush] 10 ml FLUSH ASDIRECTED PRN Sodium Chloride 0.9% [Saline Flush] 2.5 ml FLUSH ASDIRECTED PRN Peripheral IV Insertion Adult [OM.PC] Routine Schedule Procedure [COMM] Per Unit Routine Resuscitation Status Routine 03/14/21 07:45 Lactated Ringers [Ringers, Lactated] 1,000 ml IV BOLUS Oxytocin/0.9 % Sodium Chloride [Oxytocin 30 Unit/500 ML-NS] 30 unit in 500 ml IV TITRATE 03/14/21 07:47 Notify Provider Vital Signs [RC] PRN 03/14/21 08:05 RPR (SYPHILIS SERO) W/ RFLX [REF] Routine 03/14/21 10:21 Patient Status [ADT] Routine Ambulate [RC] PER UNIT ROUTINE Communication Order [RC] PER UNIT ROUTINE Communication Order [RC] PER UNIT ROUTINE Communication Order [RC] Per Unit Routine Intake and Output [RC] Q8H May Shower [RC] ASDIRECTED Notify Provider Intake and Out [RC] ASDIRECTED Notify Provider Vital Signs [RC] ASDIRECTED RT Incentive Spirometry [RC] Q2HWA Urinary Catheter Removal [RC] PER UNIT ROUTINE Vital Signs [RC] Q1H Acetaminophen/oxyCODONE [Percocet 325-5 MG] 1 tab PO Q4H PRN Acetaminophen/oxyCODONE [Percocet 325-5 MG] 2 tab PO Q4H PRN Lanolin [Lansinoh HPA] See Dose Instructions TOP ASDIRECTED PRN Ondansetron [Zofran] 4 mg IVPUSH Q4H PRN bisacodyL [Dulcolax] 10 mg RECTAL ONETIME PRN diphenhydrAMINE [Benadryl] 25 mg IVPUSH Q6H PRN Abdominal Binder [OM.PC] Routine Assess Lochia [WOMSER] Per Unit Routine Assess Uterine Involution [WOMSER] Per Unit Routine Breast Pump [WOMSER] Per Unit Routine DVT/VTE Prophylaxis Reflex [OM.PC] Routine Heat Therapy [OM.PC] Routine Ice Therapy [OM.PC] Routine Peripheral IV Discontinue [OM.PC] Routine Sequential Compression Device [OM.PC] Per Unit Routine 03/14/21 10:22 Antiembolic Devices [RC] .Routine Antiembolic Devices [RC] PER UNIT ROUTINE Cooling Warming Measures [RC] ASDIRECTED VTE/DVT Education [RC] PER UNIT ROUTINE 03/14/21 10:30 Ketorolac [Toradol] 30 mg IVPUSH Q6H Lactated Ringers [Ringers, Lactated] 1,000 ml IV ASDIRECTED Oxytocin/Lactated Ringers [Pitocin in LR 30 Units/500 ML] 30 unit in 500 ml IV TITRATE 03/14/21 Lunch Regular Diet [DIET] 03/14/21 21:00 Docusate Sodium [Colace] 100 mg PO BID 03/15/21 05:15 HEMOGLOBIN/HEMATOCRIT,HH [HEME] Routine 03/15/21 16:30 Ibuprofen [Motrin] 800 mg PO Q8H PRN - Assessment Assessment:: 26yo s/p 1LTCS at 38w0d for growth restriction and meredith breech presentation, POD#1 - Plan Plan:: Continue routine care. Rh positive. Encourage ambulation today. Plan discharge home tomorrow.
[2021-03-15] MEDS: Docusate Sodium 100 MG Cap PO SCH ×2 (12:15→20:26)
[2021-03-15] MEDS: Acetaminophen/oxyCODONE 325-5 MG Tab PO PRN ×2 (18:57→22:52)
[2021-03-15] MEDS: Ibuprofen 800 MG Tab PO PRN (20:26)
[2021-03-16] MEDS: Ibuprofen 800 MG Tab PO PRN (06:28)
[2021-03-16] MEDS: Acetaminophen/oxyCODONE 325-5 MG Tab PO PRN ×2 (06:29→11:11)
--- NOTE | 2021-03-16 08:33 | PCM.PNPP ---
- General Info Date of Service: 03/16/21 Subjective Update: Patient without complaints this morning. Bleeding has decreased. Functional Status: Reports: Pain Controlled, Tolerating Diet, Ambulating, Urinating - Review of Systems General: Reports: No Symptoms HEENT: Reports: No Symptoms Pulmonary: Reports: No Symptoms Cardiovascular: Reports: No Symptoms Gastrointestinal: Reports: No Symptoms Genitourinary: Reports: No Symptoms Musculoskeletal: Reports: No Symptoms Skin: Reports: No Symptoms Neurological: Reports: No Symptoms Psychiatric: Reports: No Symptoms - Patient Data Vital Signs - Most Recent: Last Vital Signs Temp 35.9 C L 03/16/21 07:59 Pulse 69 03/16/21 07:59 Resp 15 03/16/21 07:59 BP 112/77 03/16/21 07:59 Pulse Ox 99 03/16/21 07:59 Weight - Most Recent: 106.594 kg Med Orders - Current: Current Medications Bisacodyl (Bisacodyl 10 Mg Supp) 10 mg RECTAL ONETIME PRN PRN Reason: Constipation Diphenhydramine HCl (Diphenhydramine 50 Mg/Ml Sdv) 25 mg IVPUSH Q6H PRN PRN Reason: Itching or Nausea Docusate Sodium (Docusate Sodium 100 Mg Cap) 100 mg PO BID JAMI Last Admin: 03/15/21 20:26 Dose: 100 mg Documented by: Emollient Ointment (Lanolin 100% Cream 7 Gm Tube) 0 gm TOP ASDIRECTED PRN PRN Reason: Sore Nipples Oxytocin/Sodium Chloride (Oxytocin 30 Unit/500 Ml-Ns) 30 unit in 500 mls @ 250 mls/hr IV TITRATE JAMI Lactated Ringer's (Ringers, Lactated) 1,000 mls @ 500 mls/hr IV BOLUS JAMI Lactated Ringer's (Ringers, Lactated) 1,000 mls @ 125 mls/hr IV ASDIRECTED JAMI Last Admin: 03/14/21 12:22 Dose: 125 mls/hr Documented by: Oxytocin/Lactated Ringer's (Pitocin In Lr 30 Units/500 Ml) 30 unit in 500 mls @ 999 mls/hr IV TITRATE JAMI; Protocol Ibuprofen (Ibuprofen 800 Mg Tab) 800 mg PO Q8H PRN PRN Reason: mild pain or fever Last Admin: 03/16/21 06:28 Dose: 800 mg Documented by: Ondansetron HCl (Ondansetron 4 Mg/2 Ml Sdv) 4 mg IVPUSH Q4H PRN PRN Reason: Nausea/Vomiting Oxycodone/Acetaminophen (Acetaminophen/Oxycodone 325-5 Mg Tab) 1 tab PO Q4H PRN PRN Reason: Pain (severe 7-10) Last Admin: 03/15/21 18:57 Dose: 1 tab Documented by: Oxycodone/Acetaminophen (Acetaminophen/Oxycodone 325-5 Mg Tab) 2 tab PO Q4H PRN PRN Reason: Pain (severe 7-10) Last Admin: 03/16/21 06:29 Dose: 2 tab Documented by: Sodium Chloride (Sodium Chloride 0.9% 10 Ml Syringe) 10 ml FLUSH ASDIRECTED PRN PRN Reason: Keep Vein Open Sodium Chloride (Sodium Chloride 0.9% 2.5 Ml Syringe) 2.5 ml FLUSH ASDIRECTED PRN PRN Reason: Keep Vein Open Sodium Chloride (Sodium Chloride 0.9% 10 Ml Sdv) 10 ml IV ASDIRECTED PRN PRN Reason: IV Use Discontinued Medications Bupivacaine HCl (Bupivacaine 0.5% 10 Ml Sdv) Confirm Administered Dose 10 ml .ROUTE .STK-MED ONE Stop: 03/14/21 09:32 Bupivacaine HCl (Bupivacaine 0.5% 30 Ml Sdv) Confirm Administered Dose 30 ml .ROUTE .STK-MED ONE Stop: 03/14/21 09:32 Cefazolin Sodium (Cefazolin 1 Gm Vial) Confirm Administered Dose 2 gm .ROUTE .STK-MED ONE Stop: 03/14/21 08:08 Citric Acid/Sodium Citrate (Citric Acid/Sodium Citrate Solution 30 Ml Cup) 30 ml PO ONETIME ONE Stop: 03/14/21 07:44 Epinephrine HCl (Epinephrine 1 Mg/Ml Sdv) Confirm Administered Dose 1 mg .ROUTE .STK-MED ONE Stop: 03/14/21 09:32 Fentanyl (Fentanyl 100 Mcg/2 Ml Sdv) Confirm Administered Dose 100 mcg .ROUTE .STK-MED ONE Stop: 03/14/21 08:09 Sodium Chloride (Normal Saline) Confirm Administered Dose 20 mls @ as directed .ROUTE .STK-MED ONE Stop: 03/14/21 08:08 Ketorolac Tromethamine (Ketorolac 30 Mg/Ml Sdv) Confirm Administered Dose 30 mg .ROUTE .STK-MED ONE Stop: 03/14/21 08:08 Ketorolac Tromethamine (Ketorolac 30 Mg/Ml Sdv) 30 mg IVPUSH Q6H JAMI Stop: 03/15/21 10:31 Last Admin: 03/15/21 12:15 Dose: 30 mg Documented by: Morphine Sulfate (Morphine Pf 10 Mg/10 Ml Sdv) Confirm Administered Dose 10 mg .ROUTE .STK-MED ONE Stop: 03/14/21 08:09 Ondansetron HCl (Ondansetron 4 Mg/2 Ml Sdv) Confirm Administered Dose 4 mg .ROUTE .STK-MED ONE Stop: 03/14/21 08:08 Oxytocin (Oxytocin 10 Units/1 Ml Sdv) Confirm Administered Dose 30 unit .ROUTE .STK-MED ONE Stop: 03/14/21 08:08 - Infant Interaction Disposition, : to Nursery Interaction: Holding Feeding: Bottle Fed Infant Support Person: Significant Other - Recovery Exam Fundal Tone: Firm Fundal Level: 1 Fingerbreadths Below Umbilicus Fundal Placement: Midline Lochia Amount: Scant Lochia Color: Rubra/Red Bladder Status: Voiding Urinary Elimination: Voided - Exam General: Alert, Oriented Neck: Supple Lungs: Normal Respiratory Effort GI/Abdominal Exam: Soft, Non-Tender, No Distention Extremities: No Pedal Edema Skin: Warm, Dry, Intact Wound/Incisions: Healing Well Neurological: No New Focal Deficit Psy/Mental Status: Alert, Normal Affect, Normal Mood - Problem List & Annotations (1) S/P primary low transverse SNOMED Code(s): 175447689, [id number], [id number], [id number], 143032534 Code(s): Z98.891 - HISTORY OF UTERINE SCAR FROM PREVIOUS SURGERY Status: Acute Current Visit: Yes - Problem List Review Problem List Initiated/Reviewed/Updated: Yes - My Orders Last 24 Hours: My Active Orders 03/15/21 16:30 Ibuprofen [Motrin] 800 mg PO Q8H PRN 03/16/21 08:31 Ready for Discharge [RC] PER UNIT ROUTINE - Assessment Assessment:: 26yo s/p 1LTCS at 38w0d for growth restriction and meredith breech presentation, POD#2 - Plan Plan:: Rh positive. Plan for discharge home today, reviewed discharge instructions/precautions. All questions answered.
[2021-03-16] MEDS: Docusate Sodium 100 MG Cap PO SCH (11:11)
[2021-03-16 12:24] VITALS: BP 104/75; PULSE 70
== END 2021-03-16 13:50 | disposition home or self-care (01) | DRG 540 ==
LOC: MW.OB 03-14 07:36
PROVIDERS: ADMIT Obstetrics & Gynecology; ATTEND Obstetrics & Gynecology
PROC: 10D00Z1 Extraction of Products of Conception, Low, Open Approach (ICD-10-PCS; principal; 2021-03-14)
DX: O36.5930 Maternal care for other known or suspected poor fetal growth, third trimester, not applicable or unspecified (principal); O32.1XX0 Maternal care for breech presentation, not applicable or unspecified; Z3A.38 38 weeks gestation of pregnancy; Z37.0 Single live birth
CPT/HCPCS: 36415; 59025; 82803; 85014; 85018; 85027; 86592; 86850; 86900; 86901; A9270-GY; J0171; J0690; J1885; J2270; J2405; J2590; J3010; J3490; J7120